=== PATIENT | female | born 1975 | race Caucasian/White ===

== ENCOUNTER 2016-11-23 03:40 | Emergency (ER) | payer OTHER ==
[2016-11-23 03:59] LABS: BILIRUBIN NEGATIVE (NEGATIVE); BLOOD 3+ Ery/uL (NEGATIVE); CLARITY CLEAR (CLEAR); COLOR YELLOW (YELLOW); GLUCOSE (U) NORMAL (NORMAL); KETONE (U) NEGATIVE (NEGATIVE); LEUKOCYTES 2+ Leu/uL (NEGATIVE); NITRITE POSITIVE (NEGATIVE); PROTEIN 1+ mg/dL (NEGATIVE); SPECIFIC GRAVITY 1.025 (1.001-1.030)
[2016-11-23 04:04] LABS: BACTERIA 3+
[2016-11-23 04:09] LABS: BASOPHIL 0.2 % (0-2); EOSINOPHIL 1.1 % (0-5); HCT 38.5 % (37.0-47.0); HGB 13.2 g/dl (12.5-16.0); LYMPHOCYTE 31.3 % (15-48); MCH 30.1 pg (25.0-31.0); MCHC 34.3 g/dL (32.0-36.0); MCV 87.9 fL (78.0-100.0); MONOCYTE 8.9 % (0-12); MPV 9.8 fL (6.0-9.5); NEUTROPHIL 58.5 % (41-80); PLT 270 K/uL (150-400); RBC 4.38 M/uL (4.20-5.40); RDW 12.6 % (11.5-14.0)
[2016-11-23 04:10] LABS: WBC 12.5 K/uL (4.0-10.5)
[2016-11-23 04:24] LABS: BILIRUBIN - TOTAL 0.3 mg/dL (0.1-1.0); CREATININE 0.8 mg/dL (0.5-1.0); GLOBULIN (CALCULATION) 3.1 g/dL (2.2-4.2); POTASSIUM 4.2 mmol/L (3.5-5.1); TOTAL PROTEIN 7.1 g/dL (6.4-8.3)
== END 2016-11-23 05:17 | disposition home or self-care (01) ==
LOC: FER 03:40
PROVIDERS: Emergency Medicine Emergency Medical Services
DX: N30.00 Acute cystitis without hematuria (principal); Z87.440 Personal history of urinary (tract) infections; Z88.0 Allergy status to penicillin; Z88.1 Allergy status to other antibiotic agents; Z90.710 Acquired absence of both cervix and uterus
CPT/HCPCS: 36415; 74000; 80053; 81001; 85025; 87076; 87088; 87186; J1885